=== PATIENT | male | born 1960 | race Caucasian/White ===

== ENCOUNTER 2021-10-13 05:44 | Emergency (ER) | payer BC ==
[2021-10-13 06:34] LABS: ESTIMATED GFR 56 mL/min (>60)
[2021-10-13] MEDS ORDERED: Iopamidol 755 Mg/ML 100 ML Bottle IV ONE (07:12)
[2021-10-13] MEDS ORDERED: Sodium Chloride 0.9% 1,000 ML IV SCH (07:15)
[2021-10-13] MEDS ORDERED: Sodium Chloride 0.9% 75 ML IV SCH (07:15)
[2021-10-13] MEDS ORDERED: Ketorolac 30 MG/ML SDV IVPUSH ONE (07:16)
[2021-10-13] MEDS ORDERED: Dexamethasone 4 MG/ML SDV PO ONE (08:26)
== END 2021-10-13 09:02 | disposition home or self-care (01) ==
LOC: JP.ED 05:44
DX: J18.9 Pneumonia, unspecified organism (principal); J02.9 Acute pharyngitis, unspecified; U09.9 Post COVID-19 condition, unspecified; Z91.030 Bee allergy status
CPT/HCPCS: 36415; 71046; 71275; 80053; 84145; 85025; 85379; 86140; 87081; 87880-QW; 96374; 99283; 99284-25; J1885; J3490; J7030; J8540; Q9967